=== PATIENT | female | born 1960 | race Two or more races ===

== ENCOUNTER 2019-08-12 18:31 | Emergency (ER) | payer SELFPAY ==
[~2019-08-12] VITALS: Ht 167.6 cm; Wt 71.0 kg
[2019-08-12 21:25] VITALS: BP 155/88
== END 2019-08-12 21:26 | disposition home or self-care (01) ==
LOC: ER 20:56
DX: S20.219A Contusion of unspecified front wall of thorax, initial encounter (principal); V89.2XXA Person injured in unspecified motor-vehicle accident, traffic, initial encounter; Y93.89 Activity, other specified; Y92.89 Other specified places as the place of occurrence of the external cause; Y99.8 Other external cause status
CPT/HCPCS: 99283